=== PATIENT | female | born 1980 | race Caucasian/White ===

== ENCOUNTER → 2020-06-18 14:08 | Outpatient (CLI) | payer BC, SELFPAY ==
--- NOTE | ~2020-06-18 | MM_ITS ---
EXAMINATION: MM screening dejah BI w ramin HISTORY: Screening TECHNIQUE: Craniocaudal and mediolateral oblique 3-D tomosynthesis images were obtained and synthetic 2-D images were generated. CAD analysis was submitted and interpreted. COMPARISON: Comparison to multiple prior studies sequentially, with oldest reviewed study dated 03/02. BREAST PARENCHYMAL COMPOSITION: There are scattered areas of fibroglandular density. FINDINGS: There is no evidence of suspicious mass, calcification, or architectural distortion to sugg est malignancy in either breast. There has been no suspicious interval change. IMPRESSION: 1. No mammographic evidence of malignancy. 2. Recommend routine screening mammography in one year. BI-RADS Category 1: Negative Reviewed, dictated and finalized at location A.
== END ==
PROVIDERS: Visit Provider Obstetrics & Gynecology
DX: Z12.31 Encounter for screening mammogram for malignant neoplasm of breast (principal)
CPT/HCPCS: 77063; 77067

== ENCOUNTER → 2021-07-25 15:09 | Outpatient (CLI) | payer BC, SELFPAY ==
--- NOTE | ~2021-07-25 | MM_ITS ---
EXAMINATION: MM screening dejah BI w ramin HISTORY: Screening mammogram TECHNIQUE: Craniocaudal and mediolateral oblique 3-D tomosynthesis images were obtained and synthetic 2-D images were generated. CAD analysis was submitted and interpreted. COMPARISON: bilateral screening mammogram 09/27/2019 diagnostic right mammogram 04/02/2019 diagnostic right mammogram and limited right breast ultrasound 03/02/2019 bilateral screening mammogram BREAST PARENCHYMAL COMPOSITION: There are scattered areas of fibroglandular density. FINDINGS: There is no evidence of suspicious mass, calcification, or architectural distortion to sugg est malignancy in either breast. There has been no suspicious interval change. IMPRESSION: 1. No mammographic evidence of malignancy. 2. Recommend routine screening mammography in one year. BI-RADS Category 1: Negative Reviewed, dictated and finalized at location A. 4TH GRADE MATH TEACHER
== END ==
PROVIDERS: Visit Provider Obstetrics & Gynecology
DX: Z12.31 Encounter for screening mammogram for malignant neoplasm of breast (principal)
CPT/HCPCS: 77063; 77067

== ENCOUNTER → 2022-07-28 10:48 | Outpatient (CLI) | payer BC, SELFPAY ==
--- NOTE | ~2022-07-28 | MM_ITS ---
EXAMINATION: MM screening dejah BI w ramin HISTORY: Screening TECHNIQUE: Craniocaudal and mediolateral oblique 3-D tomosynthesis images were obtained and synthetic 2-D images were generated. CAD analysis was submitted and interpreted. COMPARISON: Comparison to multiple prior studies sequentially, with oldest reviewed study dated 03/02. BREAST PARENCHYMAL COMPOSITION: The breasts are almost entirely fatty. FINDINGS: There is no evidence of suspicious mass, calcification, or architectural distortion to sugg est malignancy in either breast. There has been no suspicious interval change. IMPRESSION: 1. No mammographic evidence of malignancy. 2. Recommend routine screening mammography in one year. BI-RADS Category 1: Negative Reviewed, dictated and finalized at location A. NQUENT TAX COLLECTOR
== END ==
PROVIDERS: PCP Obstetrics & Gynecology; Visit Provider Obstetrics & Gynecology
DX: Z12.31 Encounter for screening mammogram for malignant neoplasm of breast (principal)
CPT/HCPCS: 77063; 77067

== ENCOUNTER → 2023-08-17 12:24 | Outpatient (CLI) | payer BC, SELFPAY ==
--- NOTE | ~2023-08-17 | MM_ITS ---
EXAMINATION: MM screening dejah BI w ramin HISTORY: Screening mammogram, family history of breast cancer in her mother. TECHNIQUE: Craniocaudal and mediolateral oblique 3-D tomosynthesis images were obtained and synthetic 2-D images were generated. CAD analysis was submitted and interpreted. COMPARISON: 07/28/2022, 07/25/2021, 06/18/2020 BREAST PARENCHYMAL COMPOSITION: The breasts are almost entirely fatty. FINDINGS: No suspicious mass, calcification, or architectural distortion are identified in either willie ast to suggest malignancy. There has been no suspicious interval change. IMPRESSION: 1. No mammographic evidence of malignancy. 2. Recommend routine screening mammography in one year. BI-RADS Category 1: Negative Reviewed, dictated and finalized at location A. KING MECHANIC
== END ==
PROVIDERS: PCP Obstetrics & Gynecology; Visit Provider Obstetrics & Gynecology
DX: Z12.31 Encounter for screening mammogram for malignant neoplasm of breast (principal)
CPT/HCPCS: 77063; 77067

== ENCOUNTER 2024-10-28 15:27 | Outpatient (CLI) | payer BC, SELFPAY ==
--- NOTE | ~2024-10-28 | MM_ITS ---
EXAMINATION: MM screening dejah BI w ramin HISTORY: Screening TECHNIQUE: Craniocaudal and mediolateral oblique 3-D tomosynthesis images were obtained and synthetic 2-D images were generated. CAD analysis was submitted and interpreted. COMPARISON: Comparison to multiple prior studies sequentially, with oldest reviewed study dated 03/02. BREAST PARENCHYMAL COMPOSITION: Not Dense: The breasts are almost entirely fatty. FINDINGS: There is no evidence of suspicious mass, calcification, or architectural distortion to sugg est malignancy in either breast. There has been no suspicious interval change. IMPRESSION: 1. No mammographic evidence of malignancy. 2. Recommend routine screening mammography in one year. BI-RADS Category 1: Negative Reviewed, dictated and finalized at location B. ICE FELLOW
== END 2024-10-28 15:28 | disposition home or self-care (01) ==
LOC: MICIMG 15:28
PROVIDERS: PCP Obstetrics & Gynecology; Visit Provider Obstetrics & Gynecology
DX: Z12.31 Encounter for screening mammogram for malignant neoplasm of breast (principal)
CPT/HCPCS: 77063; 77067

== ENCOUNTER 2024-10-31 01:29 | Day surgery (SDC) | payer BC, SELFPAY ==
[2024-10-14 10:41] VITALS: BMI 34.8
--- OUTSIDE RECORDS SUMMARY | 2024-10-31 01:32 | XMS_ITS ---
Author Organization [employer] Address [address] [place] [address] Care Team Providers Care Consumer Studies Professor Name Role Phone Unavailable Primary Care Physician Unavailab le Medications Name Start Date Expiration Date SIG Comments Nexplanon subdermal implant 68 mg 01/22/2023 01/23/2023 implant 1 by subderm al route once Payers Insurance Name Company Name Plan Name Plan Number Policy Number Policy Group Number Start Date [place] [id number] N/A History of Encounters Visit Date Visit Type Provider 01/22/2023 My-IUD Tele-Med Consult Dr. Natanael Momin MD
[2024-10-31 09:00] VITALS: BP 158/93; PULSE 88; RESP 20; TEMP 36; O2SAT 98; BMI 38.2
--- NOTE | 2024-10-31 09:20 | P.PNAN_ITS ---
Anes - Initial Pre Proc Eval Procedure: Operation Date: 10/31/24 10:00 Proposed Procedures p Screening Colonoscopy - Trip Hirsch MD Date/Time: 10/31/24 09:20 Surgeon: Trip Hirsch MD Pre Op Diagnosis: Screening for malignant neoplasm of colon Patient Data Age: 43 Gender: F Height: 1.65 m Weight: 104.3 kg Last Vital Signs Temp 36.0 C L 10/31/24 09:00 Pulse 88 10/31/24 09:00 Resp 20 10/31/24 09:00 BP 158/93 H 10/31/24 09:00 Pulse Ox 98 10/31/24 09:00 O2 Del Method Room Air 10/31/24 09:00 Allergies Allergy/AdvReac Type Severity Reaction Status Date / Time No Known Allergies Allergy Verified 10/31/24 09:09 Home Medications ?Medication ?Instructions ?Recorded ?Confirmed ?Type No Home Medications 10/14/24 10/14/24 History Patient hx anesthesia problems: none Family hx anesthesia problems: none Results Review: All pre-operative results and documents have been reviewed as part of the pre-o perative evaluation. [facility] Family History Family History (Updated 07/25/15 @ 10:19 by DOCTOR UNKNOWN) Father Hypertension Family history of type 2 diabetes mellitus Mother Hypertension Family history of type 2 diabetes mellitus Other Family history of cardiovascular disease Family history of malignant neoplasm Social History Social History Smoking packs per day: 1 Smoking cigarettes per day: 20.0 Years smoked: 10 Smoking pack-years: 10.00 Smoking status: Former smoker Tobacco type: e-cigarettes/vaping Alcohol intake: never Substance use: never Substance use type: does not use Living arrangements: with family Spiritual care concerns: No Anes - Eval Final PreProcedure Day of Procedure 10/31/24 09:20 Patient weight: obese Heart: regular rate and rhythm Lungs: clear to auscultation Airway: Mallampati scale class III Neurological: alert and oriented Last oral intake: >/= 8 hours ASA classification: II Emergent: no Anesthetic plan: proceed Anesthesia type and monitoring: general GIVS and standard monitoring Results Review: All pre-operative results and documents have been reviewed as part of the pre- operative evaluation. Informed Consent: The patient's anesthetic plan and its attendant risks and benefits were discussed with the patient/family/POA. Questions were solicited and answers provided to the satisfaction of the patient/family/POA.
[2024-10-31] MEDS: LACTATED RINGERS 1,000 ML 150 ML IV CONT (09:24)
--- NOTE | 2024-10-31 10:04 | PM.IMHP ---
H&P: HPI History of Present Illness Date/Time: 10/31/24 10:04 Chief Complaint: Screening colonoscopy Narrative: This is the patient's first colonoscopy. There are no GI symptoms and there is no family history of colorectal cancer. Review of Systems Review of Systems: All systems reviewed & are unremarkable except as noted in HPI and below PMFSH Family History Family History (Updated 07/25/15 @ 10:19 by DOCTOR UNKNOWN) Father Hypertension Family history of type 2 diabetes mellitus Mother Hypertension Family history of type 2 diabetes mellitus Other Family history of cardiovascular disease Family history of malignant neoplasm Social History Social History Smoking packs per day: 1 Smoking cigarettes per day: 20.0 Years smoked: 10 Smoking pack-years: 10.00 Smoking status: Former smoker Tobacco type: e-cigarettes/vaping Alcohol intake: never Substance use: never Substance use type: does not use Living arrangements: with family Spiritual care concerns: No Meds Home Medications and Allergies Home Medications ?Medication ?Instructions ?Recorded ?Confirmed ?Type No Home Medications 10/14/24 10/14/24 History Allergies Allergy/AdvReac Type Severity Reaction Status Date / Time No Known Allergies Allergy Verified 10/31/24 09:09 Vital Signs Vital Signs - 24 hr 10/31/24 09:00 Temperature 96.8 F L Pulse Rate 88 Respiratory Rate 20 Blood Pressure 158/93 H Pulse Oximetry 98 Oxygen Delivery Room Air Exam Const: General: cooperative and healthy appearing Resp: Effort & Inspection: normal respiratory effort and able to speak in complete sentences Auscultation: clear to auscultation bilaterally Cardio: Rate: regular rate Rhythm: regular rhythm GI: Inspection: normal to inspection GI Palp: No No hepatosplenomegaly present Auscultation: normal bowel sounds Rectal Exam: deferred Skin: General skin exam: normal color Psych: Appearance: grossly normal Mental Status: mental status grossly normal Assessment and Plan Assessment and plan (1) Encounter for screening colonoscopy: Code(s): Z12.11 - Encounter for screening for malignant neoplasm of colon Status: Acute Assessment and Plan: The patient is deemed a good candidate for the procedure. Consent signed. Will proceed.
[2024-10-31 10:34] VITALS: BP 108/69; PULSE 74; RESP 29; O2SAT 100
[2024-10-31 10:44] VITALS: BP 114/72; PULSE 55; RESP 18; O2SAT 100
--- NOTE | 2024-10-31 10:45 | P.HP_ITS ---
H&P: HPI History of Present Illness Date/Time: 10/31/24 10:45 Chief Complaint: Screening colonoscopy Narrative: This is the patient's first colonoscopy. There are no GI symptoms and there is no family history of colorectal cancer. Review of Systems Review of Systems: All systems reviewed & are unremarkable except as noted in HPI and below PMFSH Family History Family History (Updated 07/25/15 @ 10:19 by DOCTOR UNKNOWN) Father Hypertension Family history of type 2 diabetes mellitus Mother Hypertension Family history of type 2 diabetes mellitus Other Family history of cardiovascular disease Family history of malignant neoplasm Social History Social History Smoking packs per day: 1 Smoking cigarettes per day: 20.0 Years smoked: 10 Smoking pack-years: 10.00 Smoking status: Former smoker Tobacco type: e-cigarettes/vaping Alcohol intake: never Substance use: never Substance use type: does not use Living arrangements: with family Spiritual care concerns: No Meds Home Medications and Allergies Home Medications ?Medication ?Instructions ?Recorded ?Confirmed ?Type No Home Medications 10/14/24 10/14/24 History Allergies Allergy/AdvReac Type Severity Reaction Status Date / Time No Known Allergies Allergy Verified 10/31/24 09:09 Vital Signs Vital Signs - 24 hr 10/31/24 09:00 10/31/24 10:34 10/31/24 10:44 Temperature 96.8 F L Pulse Rate 88 74 55 L Respiratory Rate 20 29 H 18 Blood Pressure 158/93 H 108/69 114/72 Pulse Oximetry 98 100 100 Oxygen Delivery Room Air Room Air Room Air Exam Const: General: cooperative and healthy appearing Resp: Effort & Inspection: normal respiratory effort and able to speak in complete sentences Auscultation: clear to auscultation bilaterally Cardio: Rate: regular rate Rhythm: regular rhythm GI: Inspection: normal to inspection GI Palp: No No hepatosplenomegaly present Auscultation: normal bowel sounds Rectal Exam: deferred Skin: General skin exam: normal color Psych: Appearance: grossly normal Mental Status: mental status grossly nor mal Assessment and Plan Assessment and plan (1) Encounter for screening colonoscopy: Code(s): Z12.11 - Encounter for screening for malignant neoplasm of colon Status: Acute Assessment and Plan: The patient is deemed a good candidate for the procedure. Consent signed. Will proceed.
[2024-10-31 10:54] VITALS: BP 129/78; PULSE 65; RESP 22; O2SAT 100
[2024-10-31 13:36] LABS: BEDSIDEPREGUCG Negative (Negative)
== END 2024-10-31 10:58 | disposition home or self-care (01) ==
PROVIDERS: Referring Provider Obstetrics & Gynecology; Visit Provider Internal Medicine Gastroenterology
PROC: 0DJD8ZZ Inspection of Lower Intestinal Tract, Via Natural or Artificial Opening Endoscopic (ICD-10-PCS; CPT 45378; principal; 2024-10-31 10:00)
DX: Z12.11 Encounter for screening for malignant neoplasm of colon (principal); D12.5 Benign neoplasm of sigmoid colon; K64.8 Other hemorrhoids; Z87.891 Personal history of nicotine dependence; E66.9 Obesity, unspecified; Z68.38 Body mass index [BMI] 38.0-38.9, adult
CPT/HCPCS: 45385; 88305; J2704; J7120

== ENCOUNTER 2024-11-27 21:31 | Emergency (ER) | payer BC, SELFPAY ==
--- NOTE | ~2024-11-27 | XR_ITS ---
EXAM: XR toe 5th RT min 2V DATE: 11/27/2024 21:58 HISTORY: wound . COMPARISON: None available. FINDINGS: Normal mineralization. No fracture or dislocation. No lytic or blastic lesion. Joint space s and physes are maintained. No erosion or periosteal change. Soft tissues within normal limits. IMPRESSION: No acute osseous finding in the right fifth toe. Reviewed, dictated and finalized at location K.
[2024-11-27 21:33] VITALS: BP 137/81; PULSE 90; RESP 18; TEMP 36.4; O2SAT 98
--- OUTSIDE RECORDS SUMMARY | 2024-11-27 21:34 | XMS_ITS ---
Author Organization [employer] Address [address] [place] [address] Care Team Providers Care Anesthesiology Fellow Name Role Phone Unavailable Primary Care Physician Unavailab le Medications Name Start Date Expiration Date SIG Comments Nexplanon subdermal implant 68 mg 01/22/2023 01/23/2023 implant 1 by subderm al route once Payers Insurance Name Company Name Plan Name Plan Number Policy Number Policy Group Number Start Date [place] [id number] N/A History of Encounters Visit Date Visit Type Provider 01/22/2023 My-IUD Tele-Med Consult Dr. Natanael Momin MD
--- NOTE | 2024-11-27 23:54 | ED_ITS ---
HPI - Extremity Injury (Lower) General Chief Complaint: Wound/Laceration Stated Complaint: right foot injury Time Seen by Provider: 11/27/24 23:50 Source: patient and family Mode of arrival: ambulatory Limitations: no limitations History of Present Illness HPI Narrative: Patient presents with a right foot injury. She was moving dishes and accidentally dropped a lid from a ceramic pot on her right 5th toe. She s ustained a laceration in the process and this toe became swollen with ecchymosis. She has not yet taken any pain meds prior to arrival. Gauze and Coban was applied in triage after irrigating the wound. 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 Patient states the toe was numb in route but this resolved and it is now throbbing. Related Data Home Medications ?Medication ?Instructions ?Recorded ?Confirmed ?Last Taken ?Type No Home Medications 10/14/24 10/14/24 Unknown History Allergies Allergy/AdvReac Type Severity Reaction Status Date / Time No Known Allergies [facility] Family History Family History (Updated 07/25/15 @ 10:19 by DOCTOR UNKNOWN) Father Hypertension Family history of type 2 diabetes mellitus Mother Hypertension Family history of type 2 diabetes mellitus Other Family history of cardiovascular disease Family history of malignant neoplasm Social History Social History Smoking packs per day: 1 Smoking cigarettes per day: 20.0 Years smoked: 10 Smoking pack-years: 10.00 Smoking status: Former smoker Tobacco type: e-cigarettes/vaping Alcohol intake: never Substance use: never Substance use type: does not use Living arrangements: with family Spiritual care concerns: No Exam Narrative: GENERAL: Well-appearing, well-nourished, and in no acute distress. HEAD: Normocephalic, atraumatic. EYES: Non injected, non icteric ENT: Nares clear, no rhinorrhea or epistaxis. NECK: Supple. CHEST: Speaking in full sentences. No respiratory distress. Brisk capillary refill in digits 4 and 5. HEART: Regular rate and rhythm. . ABDOMEN: Soft, nondistended. EXTREMITIES: Erythematous and mildly edematous right 5th toe. No nail involvement. Mild ecchymosis overlying dorsum of right 4th digit of foot. SKIN: Warm, dry. 1cm laceration along dorsal aspect right 5th wisdom NEURO: No focal deficits. Alert and oriented x3. PSYCH: Normal mood and affect. Course Vital Signs Vital signs: Vital Signs Temperature 97.6 F 11/27/24 21:33 Pulse Rate 90 11/27/24 21:33 Respiratory Rate 18 11/27/24 21:33 Blood Pressure 137/81 11/27/24 21:33 Pulse Oximetry 98 11/27/24 21:33 Oxygen Delivery Room Air 11/27/24 21:33 Temperature 97.6 F 11/27/24 21:33 Pulse Rate 62 11/28/24 00:31 Respiratory Rate 15 11/28/24 00:31 Blood Pressure 126/68 11/28/24 00:31 Pulse Oximetry 100 11/28/24 00:31 Oxygen Delivery Room Air 11/27/24 21:33 Procedures Laceration Laceration 1: Date: 11/28/24 Time: 00:10 Site: lower extremity (5th toe) Side (If applicable): right Size (cm): 1 Description: linear Depth: simple, single layer Local Anesthetic: none Pre-repair: wound explored and irrigated ====== Skin Level ====== Skin layer closed with: dermabond ====== Subcutaneous Layer ====== ====== Muscle Layer ====== ====== Tendon Layer ====== MDM - Extremity Injury (Lower) [facility] Narrative Medical decision making narrative: Patient presents with right 5th digit toe pain and laceration after ceramic lid accidentally fell on it. In the emergency department they are afebrile with vital signs within normal limits. Tetanus status unknown but not believed to be up-to-date and so it is updated today. Patient given [place] p.o. for analgesia. Patient states that it had been irrigated in triage and gauze and Coban applied. I did explore the wound and irrigated it myself as well. Laceration repair as above. Patient tolerated this well with no complications. Discussed appropriate wound care and healing and expected course. Patient aware to watch for signs and symptoms of infection and return if needed. She is provided contact information/referral for primary care physician if needed. Discharged home stable condition. Differential Diagnosis Differential diagnosis: Likely fracture of toe and other (laceration; dislocation; bony contusion) Imaging Data Radiologist's impression: Impressions Toe X-Ray 11/27/24 22:18 IMPRESSION: No acute osseous finding in the right fifth toe. Discharge Plan Discharge Clinical Impression: Laceration of fifth toe of right foot, Traumatic ecchymosis of toe of right foot Patient Disposition: Home, Self-Care Condition: Stable Instructions: Antibiotic Form, Diphtheria/Acellular Pertussis/Tetanus Booster Vaccine (By injection), Laceration (DC), Skin Adhesive Care (ED), Ecchymosis (ED) Additional Instructions: No need to return since we used skin glue/Dermabond. Follow-up with your primary care physician or return to the emergency department or go to an urgent care if you have concern for infection such as spreading/streaking redness, pus/drainage, fever greater than 100.4? F. You may notice that the bruising wo rsened slightly before gets better. No need to apply anything to the wound. Avoid using Neosporin or hydrogen peroxide. Keep the area clean warm and dry otherwise. Return to the emergency department with any new or worsening symptoms. If you do not have a primary care physician the name of the doctors listed below. Your tetanus immunization was updated today. Patient Language: Estonian Prescriptions: No Action No Home Medications Follow-up/Referrals: Low Jay MD [Physician] - (family practice/primary care) UNKNOWN,DOCTOR [Primary Care Provider] - Stand Alone Forms: Work/School Release IP Time of Disposition: 00:16
--- OUTSIDE RECORDS SUMMARY | 2024-11-28 00:04 | XMS_ITS ---
Author Organization [employer] Address [address] [place] [address] Care Team Providers Care International Trade Manager Name Role Phone Unavailable Primary Care Physician Unavailab le Medications Name Start Date Expiration Date SIG Comments Nexplanon subdermal implant 68 mg 01/22/2023 01/23/2023 implant 1 by subderm al route once Payers Insurance Name Company Name Plan Name Plan Number Policy Number Policy Group Number Start Date [place] [id number] N/A History of Encounters Visit Date Visit Type Provider 01/22/2023 My-IUD Tele-Med Consult Dr. Natanael Momin MD
[2024-11-28] MEDS: HYDROcodone/acetaminophen (*CRX) 5-325 MG TABLET 1 TAB PO (00:13)
[2024-11-28] MEDS: TETANUS,DIPHTHERIA,AC PERTUSSIS ADULT (0.5 ML) BOOSTRIX IM (00:24)
[2024-11-28 00:31] VITALS: BP 126/68; PULSE 62; RESP 15; O2SAT 100
== END 2024-11-28 00:32 | disposition home or self-care (01) ==
PROVIDERS: Emergency Provider Student in an Organized Health Care Education/Training Program
DX: S91.114A Laceration without foreign body of right lesser toe(s) without damage to nail, initial encounter (principal); S90.121A Contusion of right lesser toe(s) without damage to nail, initial encounter; W22.8XXA Striking against or struck by other objects, initial encounter; Z87.891 Personal history of nicotine dependence; Z23 Encounter for immunization
CPT/HCPCS: 12001; 73660; 90471; 90715; 99283; A9270